=== PATIENT | female | born 1995 | race Caucasian/White ===

== ENCOUNTER 2016-12-08 12:15 | Emergency (ER) | payer OTHER ==
[~2016-12-08] VITALS: Ht 157.5 cm; Wt 53.5 kg
[~2016-12-08 12:15] MED LIST: ALEVE220 MG PO; METHYLPRED DP4 MG PO; POTASSIUM CHLO10 ME3 PO; PREDNISONE 20MG20 MG PO; ULTRACET 325 MG1 TAB PO
[2016-12-08] MEDS ORDERED: VENLAFAXINE HYD75 M1 PO (12:42)
[2016-12-08] MEDS ORDERED: RISPERIDONE1 M2 PO (12:42)
[2016-12-08 13:11] LABS: HEMOGLOBIN 13.5 g/dL (12.2-16.2)
[2016-12-08 13:13] LABS: LYMPH # 2.2 K/mm3 (0.7-4.5); LYMPH % 36.4 % (10-50.0)
--- NOTE | 2016-12-08 13:20 | Emergency Room Report ---
History of Present Illness Time Seen by [id number] Presenting Problem in Triage Pt arrived:Walked Presenting Problem:PT REPORTS FELT THE NEED TO HAVE A BOWEL MOVEMENT, STATED WENT TO THE BATHROOM, REPORTS NO BOWEL MOVEMENT ONLY BLOOD NOTED IN TOILET, PT REPORTS 2 MORE EPISODES OF BLOOD NOTED WHEN FELT NEED TO HAVE BOWEL MOVEMENT. PT REPORTS BEGAN HAVING LOWER ABD CRAMPING THAT IS INTERMITTENT IN NATURE, BEGAN YESTERDAY, STATES PAIN IS MAINLY ON R LOWER SIDE OF ABD. 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 N Clinical Suspician of Infection? N Mental Status: 1 - Regular (Normal Baseline) Sepsis Risk:Low Sepsis Risk Have you (or family members/close friends) recently traveled outside the [facility]? N If Yes, where/when: Have you had exposure to infectious disease within the past month? N TB? Other? Specify: Comment The patient complains of rectal bleeding. She states this morning she started having some intermittent abdominal cramps that she thought were "diarrhea pains " but she says that when she went to the bathroom she just passed some liquid blood and not really stool. She is not having constant abdominal pain, no fever. She just recently traveled to the [facility], got back about a week ago. ALLERGIES Coded Allergies: acetaminophen (From FIORICET) (ITCHING 12/08/16) butalbital (From FIORICET) (ITCHING 12/08/16) caffeine (From FIORICET) (ITCHING 12/08/16) cefaclor (From CECLOR) (I-RASH 12/08/16) Home Medications Reported Medications VENLAFAXINE HCL (Venlafaxine HCl ER) 75 MG PO BID #60 Risperidone 1 MG PO BID #45 History Medical History General CAD? No Angina: No [place]: No Hypertension? No Hyperlipidemia? No CHF? No DVT? No PE? No COPD? No Asthma? Yes Anemia? No GERD? No Gastric ulcers? No GI Bleed? No Hernia? No Thyroid Problems? No Hypothyroidism? No CVA? No Seizures? No Diabetes? No Renal Insuffiency? No End Stage Renal Disease? No UTI? No Stones? No GB Disease: No Nephritic Syndrome? No Asplenia? No Hepatitis? No Arthritis? No Migraines? No Cataracts? No Glaucoma? No MRSA? No HIV? No TB? No Anxiety? Yes Depression? Yes Cancer? No More? 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 Social History Smoking Hx Smoker: Never Smoker Tobacco: No Alcohol Alcohol: No Review of Systems All Other Systems Reviewed and Negative Constitutional denies fever Gastrointestinal abdominal pain, denies nausea, denies vomiting Physical Exam Vital Signs Vital Signs Date Time Temp Pulse Resp B/P Pulse O2 O2 Flow FiO2 Ox Delivery Rate 12/08 1408 98.4 71 18 99/66 99 12/08 1229 98.5 98 18 120/77 99 General Appearance normal appearance, WD/WN Eye Exam - bilateral eye normal exam, bilateral eye PERRL, bilateral eye EOMI Ear, Nose, Throat hearing grossly normal, normal ENT inspection Neck normal inspection, non-tender, supple, full range of motion Respiratory Status Yes: trachea midline, chest symmetrical, non tender chest. No: respiratory distress. Lung Sounds bilateral: normal breath sounds, lungs clear. 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 No Results/Orders Laboratory Tests 12/08/16 1246: Urine Color Cancelled, Urine Appearance Cancelled, Urine pH Cancelled, Ur Specific [place] Cancelled 12/08/16 1235: Sodium 138, Potassium 4.1, Chloride 102, Carbon Dioxide 30, BUN 10, Creatinine 0.9, Estimated Creat Clear 82, Estimated GFR (MDRD) 78, Glucose 107 H, Calcium 9.2, Total Bilirubin 0.3, AST 8 L, ALT 17, Alkaline Phosphatase 72, Total Protein 7.6, Albumin 4.2, Globulin 3.4 H, Albumin/Globulin Ratio 1.2, WBC 6.1, RBC 4.75, Hgb 13.5, Hct 42.7, MCV 89.8, RDW 15.6, Plt Count 197, Gran % 56.8, Gran # 3.5, Lymphocytes % 36.4, Monocytes % 6.8, Lymphocytes # 2.2, Monocytes # 0.4, PUBS MCHC 31.6 L, MCH 28.4 Current Medication Orders Sig/Marycarmen Start time Last Medication Dose Route Stop Time Status Admin Sodium Chloride 10 ML PRN PRN 12/08 1300 DCD IV 12/09 1246 Orders Procedure Date/time Status SERUM , QUAL 12/08 1327 Complete IV SALINE LOCK 12/08 1246 Active CBC WITH AUTO DIFF 12/08 1246 Complete CHEM 12 PROFILE 12/08 1246 Complete Progress - I suspect that the patient has infectious colitis, probably from travel exposure. Departure Departure Disposition DC Home or Self Care(routine) Clinical Impression Primary Impression: Colitis Condition STABLE Referrals Lebron Hawkins MD (Family) Patient Instructions DI for Colitis Additional Instructions Follow-up with your primary care physician in 2-3 days. Return to the emergency department if worsening abdominal pain, fever, persistent vomiting, or passing large amounts of blood. Prescriptions Current Visit Scripts Ciprofloxacin HCl (Cipro 500MG TAB) 500 MG PO BID #20 TAB ED Critical Care Critical Care No at [id number]
--- NOTE | 2016-12-08 13:20 | Emergency Room Report ---
History of Present Illness Time Seen by [id number] Presenting Problem in Triage Pt arrived:Walked Presenting Problem:PT REPORTS FELT THE NEED TO HAVE A BOWEL MOVEMENT, STATED WENT TO THE BATHROOM, REPORTS NO BOWEL MOVEMENT ONLY BLOOD NOTED IN TOILET, PT REPORTS 2 MORE EPISODES OF BLOOD NOTED WHEN FELT NEED TO HAVE BOWEL MOVEMENT. PT REPORTS BEGAN HAVING LOWER ABD CRAMPING THAT IS INTERMITTENT IN NATURE, BEGAN YESTERDAY, STATES PAIN IS MAINLY ON R LOWER SIDE OF ABD. 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 N Clinical Suspician of Infection? N Mental Status: 1 - Regular (Normal Baseline) Sepsis Risk:Low Sepsis Risk Have you (or family members/close friends) recently traveled outside the [facility]? N If Yes, where/when: Have you had exposure to infectious disease within the past month? N TB? Other? Specify: Comment The patient complains of rectal bleeding. She states this morning she started having some intermittent abdominal cramps that she thought were "diarrhea pains " but she says that when she went to the bathroom she just passed some liquid blood and not really stool. She is not having constant abdominal pain, no fever. She just recently traveled to the [facility], got back about a week ago. ALLERGIES Coded Allergies: acetaminophen (From FIORICET) (ITCHING 12/08/16) butalbital (From FIORICET) (ITCHING 12/08/16) caffeine (From FIORICET) (ITCHING 12/08/16) cefaclor (From CECLOR) (I-RASH 12/08/16) Home Medications Reported Medications VENLAFAXINE HCL (Venlafaxine HCl ER) 75 MG PO BID #60 Risperidone 1 MG PO BID #45 History Medical History General CAD? No Angina: No [place]: No Hypertension? No Hyperlipidemia? No CHF? No DVT? No PE? No COPD? No Asthma? Yes Anemia? No GERD? No Gastric ulcers? No GI Bleed? No Hernia? No Thyroid Problems? No Hypothyroidism? No CVA? No Seizures? No Diabetes? No Renal Insuffiency? No End Stage Renal Disease? No UTI? No Stones? No GB Disease: No Nephritic Syndrome? No Asplenia? No Hepatitis? No Arthritis? No Migraines? No Cataracts? No Glaucoma? No MRSA? No HIV? No TB? No Anxiety? Yes Depression? Yes Cancer? No More? 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 Social History Smoking Hx Smoker: Never Smoker Tobacco: No Alcohol Alcohol: No Review of Systems All Other Systems Reviewed and Negative Constitutional denies fever Gastrointestinal abdominal pain, denies nausea, denies vomiting Physical Exam Vital Signs Vital Signs Date Time Temp Pulse Resp B/P Pulse O2 O2 Flow FiO2 Ox Delivery Rate 12/08 1408 98.4 71 18 99/66 99 12/08 1229 98.5 98 18 120/77 99 General Appearance normal appearance, WD/WN Eye Exam - bilateral eye normal exam, bilateral eye PERRL, bilateral eye EOMI Ear, Nose, Throat hearing grossly normal, normal ENT inspection Neck normal inspection, non-tender, supple, full range of motion Respiratory Status Yes: trachea midline, chest symmetrical, non tender chest. No: respiratory distress. Lung Sounds bilateral: normal breath sounds, lungs clear. 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 No Results/Orders Laboratory Tests 12/08/16 1246: Urine Color Cancelled, Urine Appearance Cancelled, Urine pH Cancelled, Ur Specific [place] Cancelled 12/08/16 1235: Sodium 138, Potassium 4.1, Chloride 102, Carbon Dioxide 30, BUN 10, Creatinine 0.9, Estimated Creat Clear 82, Estimated GFR (MDRD) 78, Glucose 107 H, Calcium 9.2, Total Bilirubin 0.3, AST 8 L, ALT 17, Alkaline Phosphatase 72, Total Protein 7.6, Albumin 4.2, Globulin 3.4 H, Albumin/Globulin Ratio 1.2, WBC 6.1, RBC 4.75, Hgb 13.5, Hct 42.7, MCV 89.8, RDW 15.6, Plt Count 197, Gran % 56.8, Gran # 3.5, Lymphocytes % 36.4, Monocytes % 6.8, Lymphocytes # 2.2, Monocytes # 0.4, PUBS MCHC 31.6 L, MCH 28.4 Current Medication Orders Sig/Marycarmen Start time Last Medication Dose Route Stop Time Status Admin Sodium Chloride 10 ML PRN PRN 12/08 1300 DCD IV 12/09 1246 Orders Procedure Date/time Status SERUM , QUAL 12/08 1327 Complete IV SALINE LOCK 12/08 1246 Active CBC WITH AUTO DIFF 12/08 1246 Complete CHEM 12 PROFILE 12/08 1246 Complete Progress - I suspect that the patient has infectious colitis, probably from travel exposure. Departure Departure Disposition DC Home or Self Care(routine) Clinical Impression Primary Impression: Colitis Condition STABLE Referrals Lebron Hawkins MD (Family) Patient Instructions DI for Colitis Additional Instructions Follow-up with your primary care physician in 2-3 days. Return to the emergency department if worsening abdominal pain, fever, persistent vomiting, or passing large amounts of blood. Prescriptions Current Visit Scripts Ciprofloxacin HCl (Cipro 500MG TAB) 500 MG PO BID #20 TAB ED Critical Care Critical Care No at [id number]
[2016-12-08] MEDS ORDERED: CIPRO 500MG TA500 MG PO (14:01)
[2016-12-08 14:08] VITALS: BP 99/66
== END 2016-12-08 14:08 | disposition home or self-care (01) ==
LOC: UTC 12:15 → ER 12:18 → UTC 12:18 → ER 14:08
PROVIDERS: Emergency Medicine
DX: A09 Infectious gastroenteritis and colitis, unspecified (principal); Z88.1 Allergy status to other antibiotic agents; Z88.6 Allergy status to analgesic agent; J45.909 Unspecified asthma, uncomplicated; F41.8 Other specified anxiety disorders

== ENCOUNTER → 2017-02-22 | Outpatient (CLI) | payer OTHER ==
[~2017-02-22] MED LIST changes: +CIPRO 500MG TA500 MG PO; +RISPERIDONE1 M2 PO; +VENLAFAXINE HYD75 M1 PO
[2017-02-22 16:43] LABS: AEROMONAS NOT DETECTED (NOT DETECTE); ASTROVIRUS NOT DETECTED (NOT DETECTE); CYCLOSPORA CAYETANENSIS NOT DETECTED (NOT DETECTE); E COLI O157 NOT DETECTED (NOT DETECTE); ENTEROAGGREGATIVE E COLI NOT DETECTED (NOT DETECTE); ENTEROPATHOGENIC E COLI NOT DETECTED (NOT DETECTE); ENTEROTOXIGENIC E COLI NOT DETECTED (NOT DETECTE); NOROVIRUS NOT DETECTED (NOT DETECTE); SAPOVIRUS NOT DETECTED (NOT DETECTE); SHIGA-LIKE TOXIN PROD. E COLI NOT DETECTED (NOT DETECTE); SHIGELLA/ENTEROINVASIVE E COLI NOT DETECTED (NOT DETECTE); VIBRIO CHOLERAE NOT DETECTED (NOT DETECTE)
== END ==
LOC: LAB 16:41
PROVIDERS: Nurse Practitioner Family
DX: R19.7 Diarrhea, unspecified (principal)